=== PATIENT | male | born 2000 | race Caucasian/White ===

== ENCOUNTER 2025-04-07 16:26 | Emergency (ER) | payer BC, SELFPAY ==
[2025-04-07 16:31] VITALS: BP 131/74
--- NOTE | 2025-04-07 18:39 | ED.GENMED ---
History of Present Illness
General
Chief Complaint: Crisis Evaluation
Source: patient
Exam Limitations: none
Time Seen by Provider: 04/07/25 18:04
Nursing documentation reviewed up to this point in time: agreed with
History of Present Illness
History of Present Illness:
25 yr old male with PMH of depression presents to the ED for evaluation. Pt is feeling very depressed which is what prompted him him to come to the ER. He states' I do not feel like I am a direct harm to myself.' He admits to having suicidal
thoughts however does not feel that he would act on anything. He does feel that inpatient would benefit him. He does have a history of suicide attempt years ago. Parents at bedside. He is not currently on antidepressant medication and does not
currently have a therapist.
Phy Exam
General Physical Exam
General Presentation: no apparent distress
General age: appears stated age
General Skin: warm and dry
General Habitus: normal
General Mental: alert
General Hydration: appears well hydrated
Cardiovascular Exam
Cardiovascular Exam: regular rate/rhythm, no murmur and normal peripheral pulses
Pulmonary Exam
Pulmonary Exam: lungs clear and no respiratory distress
Neurological Exam
Neurological Exam: alert and oriented x3
Musculoskeletal Exam
Musculoskeletal Exam: full ROM
Skin Exam
Skin Exam: normal color and warm/dry
Psychiatric Exam
Psychiatric Exam: normal mood/affect
Course
Orders/Labs/Results
Orders:
Orders
04/07/25 16:28
1:1 Observation - Suicide/ Violent Behavior As Directed
Crisis Consult Urgent
Reason for Consult: SI
04/07/25 19:47
Urine Drug Abuse Screen Urgent
Date Specimen was Collected: 04/07/25
Time Specimen was Collected: 19:41
Abnormal Lab Results
04/07/25
19:47
U Marijuana (THC) Screen Positive H
(Negative)
Vital Signs
Initial and Last Documented VS:
Initial Vital Signs
Temp Pulse Resp BP Pulse Ox
98.8 F 98 16 131/74 98
04/07/25 16:31 04/07/25 16:31 04/07/25 16:31 04/07/25 16:31 04/07/25 16:31
Last Documented Vital Signs
Temp Pulse Resp BP Pulse Ox
98.8 F 77 18 125/78 99
04/07/25 16:31 04/07/25 19:55 04/07/25 19:55 04/07/25 19:55 04/07/25 19:55
MDM/Problems Addressed
Differential Diagnosis Includes:
Not limited to depression, suicide ideation
MDM/Problems Addressed:
Patient with a history of depression presents with family. Patient does not feel that he is a threat to himself however does request inpatient hospitalization as he feels that this would benefit him. Patient was eval by crisis and they arranged
for inpatient bed at [facility]. Patient will be driven by his parents he denies any current suicidal feelings and is agreeable for inpatient admission as per his request.
Chronic conditions affecting care:
Depression
*Pulse Oximetry
SaO2: 98
Oxygen Mode of Delivery: Room air
Patient hypoxic: no
*Critical Care Note
Total Time (30-74mins, 75-104mins- exclusive of procedures): Not Applicable
ED Attending Note
-
Portions of this chart may have been created with voice recognition software.� Occasional wrong word or��sound alike� substitutions may have occurred due to the inherent limitations of voice recognition software.
Discharge Plan
Departure
Patient Disposition: Psych Facility
Date of Disposition: 04/07/25
Time of Disposition: 20:34
Patient with high blood pressure during this ER visit?: No
Condition: Fair
Covid-19: Not Applicable
Discharge Problem:
Depression
Instructions: Depression, Adult (DC)
Prescriptions:
No Action
azithromycin 250 MG tablet
250 mg PO .[id number]
Patient Comments:
Used for acne
Referrals:
NONE,* [Family Provider, Internal Medicine]
Activity Restrictions/Additional Instructions:
Go directly to [facility] .
Return if any woresning of symptoms
Interventions
Interventions:
*Risk Screen - Suicide Last Done: 04/07/25 16:27
*General Assessment Last Done: 04/07/25 16:31
*Neglect/Abuse Screening Last Done: 04/07/25 19:37
*ED- Fall Risk Assessment Last Done: 04/07/25 16:31
*ED COVID-19 Vaccine History Last Done: 04/07/25 16:31
*ED Influenza Vaccine History Last Done: 04/07/25 16:31
ED-Psychological Assessment Last Done: 04/07/25 17:02
Discharge Date and Time
Print Language: BENGALI
[2025-04-07 19:55] VITALS: BP 125/78
== END 2025-04-07 20:51 ==
LOC: EMR 16:26
PROVIDERS: EMERGENCY PHYSICIAN Emergency Medicine
DX: F32.A Depression, unspecified (principal); R45.851 Suicidal ideations; Z91.51 Personal history of suicidal behavior
CPT/HCPCS: 99285; 80306